=== PATIENT | female | born 2000 | race Caucasian/White ===

== ENCOUNTER 2023-11-05 06:10 | Outpatient (REF) | payer OTHER, SELFPAY ==
--- NOTE | ~2023-11-05 | US_ITS ---
EXAMINATION: US PELVIS COMPLETE TRANSVAGINAL PELVIC ULTRASOUND: CLINICAL INFORMATION: Pelvic pain COMPARISON: None TECHNIQUE: Transabdominal imaging initially performed. For more definitive evaluation of the endometrium and ovaries, transvaginal technique was employed. FINDINGS: Uterus is anteverted measuring 6.7 x 3.8 x 4.2cm. Endometrium measures 0.6 cm. Right ovary measures 2.5 x 2.3 x 2.3 cm for a volume of 7.1 mL. 0.9 x 1.0 x 1.2 cm cyst is seen. The left ovary measures 2.1 x 1.9 x 2.1 cm for a volume of 4.4 mL. There is small amount of pelvic free fluid, likely physiologic. US/US pelvic and transvaginal IMPRESSION: No pelvic pathology recognized.
== END 2023-11-05 06:11 | disposition home or self-care (01) ==
LOC: HO.UMASIMG 06:10
PROVIDERS: Visit Provider Family Medicine
DX: R30.0 Dysuria (principal); R10.2 Pelvic and perineal pain
CPT/HCPCS: 76830; 76856

== ENCOUNTER 2023-11-12 07:41 | Outpatient (REF) | payer OTHER, SELFPAY ==
--- NOTE | ~2023-11-12 | US_ITS ---
EXAMINATION: US RETROPERITONEAL COMPLETE (RENAL) CLINICAL INFORMATION: Pain. COMPARISON: None available. TECHNIQUE: Real-time imaging of the kidneys and bladder. FINDINGS: RIGHT KIDNEY: 10.0 x 3.5 x 4.2 cm (SAG x AP x TRV). The kidney is normal in size, contour, and echogenicity. Renal cortical thickness is normal. No focal parenchymal lesions or hydronephrosis. There are multiple nonobstructing renal calculi, the largest is in the mid kidney, measures 0.5 x 0.5 x 0.6 cm. LEFT KIDNEY: 11.1 x 5.4 x 4.2 cm (SAG x AP x TRV). The kidney is normal in size, contour, and echogenicity. Renal cortical thickness is normal. No focal parenchymal lesions or hydronephrosis. There are multiple nonobstructing renal calculi, the largest is in the mid kidney, measures 0.5 x 0.4 x 0.4 cm. BLADDER: Well distended and normal. Bilateral ureteral jets are demonstrated. Prevoid bladder volume is 395 mL. Postvoid bladder volume is 47 mL. US/US retroperitoneal comp IMPRESSION: 1. Bilateral nonobstructing renal calculi. 2. Small post void residual.
== END 2023-11-12 07:42 | disposition home or self-care (01) ==
LOC: HO.UMASIMG 07:41
PROVIDERS: Visit Provider Family Medicine
DX: R10.2 Pelvic and perineal pain (principal)
CPT/HCPCS: 76770

== ENCOUNTER 2024-11-17 08:26 | Outpatient (REF) | payer OTHER, SELFPAY ==
--- NOTE | ~2024-11-17 | US_ITS ---
CLINICAL HISTORY: ABN WEIGHTLOSS, CHRONIC WEIGHTLOSS US abdomen complete Comparison: None Findings: The visualized pancreas is normal. The aorta and inferior vena cava are normal caliber. The liver is normal in size and echotexture. There is no intrahepatic bile duct dilatation. The common duct is 2.0 mm in diameter. The gallbladder is normal. There is no sonographic Dougherty sign. The main portal vein is antegrade. The right kidney is 9.3 cm in length. Multiple nonobstructing calculi measuring up to 5 mm. The left kidney is 10.3 cm in length. Multiple nonobstructing calculi measuring up to 5 mm. The spleen is normal. No ascites. IMPRESSION: No acute or suspicious abnormality. Nonobstructing renal calculi bilaterally. This document has been electronically signed by: Bacilio Gusman MD on 11/17/2024 12:57:48
--- OUTSIDE RECORDS SUMMARY | 2024-11-17 08:43 | XMS_ITS | Clinical Summary ---
Author Organization [facility] Address [address] [place] [address] Phone Care Team Providers Care Flume Tender Name Role Phone Shakila Ralph Primary Care Provider [phone] Allergies Active Allergy Reactions Criticality Noted Date Comments Neomycin-Bacitracin Zn-Polymyx Rash Low 04/03 Medications pyridostigmine (MESTINON) 60 MG tablet Take 30 mg twice daily by mouth for 1 week then take 60 mg twice daily. 09/26/2023 Active Drospirenone (Slynd) 4 MG tablet 03/23/2023 Active phenazopyridine (PYRIDIUM) 200 MG tablet TAKE 1 TABLET BY MOUTH THREE TIMES A DAY AFTER MEALS FOR 2 DAYS 04/02/2024 Active famotidine (PEPCID) 40 MG tablet TAKE 1 TABLET BY MOUTH EVERY DAY FOR 90 DAYS 04/19/2024 Active DULoxetine (CYMBALTA) [address] capsule Take by mouth 1 (one) time each day 04/20/2024 Active guanFACINE (TENEX) 1 MG tablet 09/01/2024 Active midodrine (PROAMATINE) 5 MG tablet TAKE IN THE MORNING, NOON AND AFTERNOON, 4-5 HOURS APART. Active Active Problems Problem Noted Date Diagnosed Date Renal stone 05/07/2024 Resolved Problems Problem Noted Date Diagnosed Date Resolved Date Palpitations 05/06/2024 05/06/2024 Postural orthostatic tachyca rdia syndrome (POTS) 05/06/2024 05/06/2024 Shortness of breath 05/06/2024 05/06/20 24 Encounters Date Type Department Care Team Description 09/24/2024 Orders Only [facility] [address] [address] Daljit Tolentino MD Renal stone 09/03/2024 2:00 PM EDT Office Visit [facility] [address] [address] Daljit Tolentino MD Renal stone (Primary Dx) from Last 3 Months Social History Tobacco Use Types Packs/Day Years Used Date Smoking Tobacco: Never Assessed Comments Unknown Sex and Gender Information Value Date Recorded Sex Assigned at Not on file Legal Sex Female 11:42 AM EDT Gender Identity Not on file Sexual Orientation Not on file Last Filed Vital Signs Vital Sign Reading Time Taken Comments Blood Pressure 108/70 09/03/2024 2:35 PM EDT Pulse 85 09/03/2024 2:35 PM EDT Temperature - - Respiratory Rate - - Oxygen Saturation 99% 09/03/2024 2:35 PM EDT Inhaled Oxygen Concentration - - Weight 62.3 kg (137 lb 6.4 oz) 09/03/2024 2:35 P M EDT Height - - Body Mass Index - - Plan of Treatment Upcoming Encounters Date Type Department Care Team (Late st Contact Info) Description 09/02/2025 1:30 PM EDT Office Visit [facility] [address] [address] Daljit Tolentino MD [address] [phone] Health Maintenance Due Date Last Done Comments Hepatitis B Vaccine (1 of 3 - 19+ 3-dose series) 01/01 Pneumococcal Vaccine: Peds ( 0 to 5 Years) and At-Risk Patients (6 to 49 Years) (1 of 2 - PCV) 2017 Influenza Vaccine (Season Ended) 2025 Insurance [employer] Care Teams Flume Tender Relationship Specialty Start Date End Date Shakila Ralph [address] [place] [id number] PCP - General 02/28/24
== END 2024-11-17 08:27 | disposition home or self-care (01) ==
LOC: HO.UMASIMG 08:26
PROVIDERS: Visit Provider Family Medicine
DX: R11.0 Nausea (principal); R63.4 Abnormal weight loss
CPT/HCPCS: 76700

== ENCOUNTER → 2024-11-17 11:30 | Outpatient (BNV) | payer OTHER, SELFPAY | PROVIDERS: Visit Provider Radiology Vascular & Interventional Radiology | DX: N20.0 Calculus of kidney (principal) | CPT/HCPCS: 76700 ==